=== PATIENT | female | born 1960 | race Caucasian/White ===

== ENCOUNTER 2019-09-27 12:55 | Emergency (ER) | payer OTHER ==
[~2019-09-27] VITALS: Ht 165.1 cm; Wt 68.0 kg
[2019-09-27 13:00] VITALS: BP 107/73
--- NOTE | 2019-09-27 13:00 | NUR ---
Patient BIBA BLS, transferred to bed 6. RN evaluating patient at bedside.
--- NOTE | 2019-09-27 14:14 | NUR ---
Dr. Donaldson is evaluating the patient at bedside.
[2019-09-27 14:50] LABS: BASOPHILS % (AUTO) 0.3 % (0.0-2.0); EOSINOPHILS % (AUTO) 0.4 % (0.0-4.0); HEMATOCRIT 43.4 % (36-48); HEMOGLOBIN 14.6 g/dL (12.0-16.0); LYMPHOCYTES # (AUTO) 1.2 K/uL (2.5-16.5); LYMPHOCYTES % (AUTO) 15.3 % (20.5-51.1); MEAN CORPUSCULAR HEMOGLOBIN 31 pg (27-31); MEAN CORPUSCULAR HGB CONC 34 g/dL (33-37); MONOCYTES # (AUTO) 0.8 K/uL (0.8-1.0); MONOCYTES % (AUTO) 10.5 % (1.7-9.3); NEUTROPHILS # (AUTO) 5.6 K/uL (1.8-7.7); NEUTROPHILS % (AUTO) 73.5 % (42.2-75.2); PLATELET COUNT (AUTO) 107 K/uL (140-450); RED BLOOD CELL COUNT(AUTO) 4.67 MIL/uL (4.20-5.40); RED CELL DISTRIBUTION WIDTH 14.5 % (11.6-13.7); WHITE BLOOD COUNT (AUTO) 7.6 K/uL (4.8-10.8)
[2019-09-27 15:03] LABS: ALBUMIN 3.6 g/dL (3.4-5.0); ANION GAP 21.5 (8-16); CARBON DIOXIDE 23.7 mmol/L (21-32); CREATININE 0.7 mg/dL (0.6-1.3); POTASSIUM 3.2 mmol/L (3.5-5.1); TOTAL BILIRUBIN 0.8 mg/dL (0.0-1.0)
[2019-09-27] MEDS: NACL 0.9% 1,000 ML IV SCH (15:18)
[2019-09-27] MEDS: ONDANSETRON 4 MG/2 ML VIAL IVP ONE (15:18)
[2019-09-27] MEDS: ALUMINUM HYD/MAG/SIMETHICONE 30 ML UDC PO ONE (15:18)
--- NOTE | 2019-09-27 15:23 | NUR ---
59 Y/O FEMALE PRESENTS WITH EPIGASTRIC PAIN + EMOTIONAL DISTRESS. PT STATES EPIGASTRIC PAIN BEGAN THIS MORNING S/P DRINKING BINGE THROUGHOUT THE NIGHT. PT STATES SHE HAS HISTORY OF ALCOHOLISM AND METH USE. PT STATES SHES FEELS VERY ANXIOUS AND DEPRESSED. DENIES SI. RESP EVEN AND UNLABORED. LUNG SOUNDS CLEAR IN BILAT LOBES. ABD SOFT/NON TENDER. BOWEL SOUNDS NORMOACTIVE IN ALL QUADRANTS. PMH: STROKE, ALCHOLISM NKA
[2019-09-27] MEDS: LORazepam 2 MG/ML VIAL IVP ONE (15:46)
[2019-09-27 15:56] LABS: APPEARANCE,URINE CLEAR (CLEAR); BILIRUBIN,URINE NEGATIVE (NEGATIVE); BLOOD, URINE 1+ (NEGATIVE); COLOR,URINE YELLOW (YELLOW); LEUKOCYTE ESTERASE ,URINE NEGATIVE (NEGATIVE); NITRITE, URINE NEGATIVE (NEGATIVE); UGLUCOSE NEGATIVE (NEGATIVE)
[2019-09-27 16:13] LABS: WBC,URINE 0-5 /HPF (0-5)
--- NOTE | 2019-09-27 17:50 | NUR ---
PER DR. ANNA, PT DISCLOSED SHE WAS FEELING SUICIDAL LAST NIGHT. DR. ANNA IS GOING TO ORDER A TELEPSYCH CONSULTATION
--- NOTE | 2019-09-27 17:55 | NUR ---
Telepsychiatry consultation ordered as requested by Dr. Donaldson.
--- NOTE | 2019-09-27 18:17 | NUR ---
Dr. Frances is evaluating the patient via telepsychiatry.
--- NOTE | 2019-09-27 19:11 | NUR ---
Pt report RECEIVED FROM DINESH VINCENT. ASSUMED care OF PT AT this time.
[2019-09-27 19:56] LABS: BARBITURATE, URINE POSITIVE ng/ml (NEG <=200); BENZODIAZEPINE, URINE POSITIVE ng/mL (NEG <=200); CANNABINOID, URINE NEGATIVE ng/mL (NEG <=50); COCAINE, URINE NEGATIVE ng/mL (NEG <=300); OPIATE, URINE NEGATIVE ng/mL (NEG <=2000); PHENCYCLIDINE SCREEN,URINE NEGATIVE ng/mL (NEG <=25)
--- NOTE | 2019-09-27 20:00 | NUR ---
PT PLACED ON 5150 HOLD. PT PERSONAL BELONGINGS REMOVED FROM PT AND PLACED IN BELONGINGS BAG AND PHONED SECURITY TO STATE DIRECTOR BELONGINGS. PT PLACED IN GOWN. ROOM CLEARED OF POTENTIAL HAZARDS. SUICIDE ASSESSMENT FORM COMPLETED. 15 MIN OBSERVATION CHECKLIST GIVEN TO AMANDA YATES, WHO IS SITTING AT BEDSIDE .
[2019-09-27] MEDS: POTASSIUM CHLORIDE 10 MEQ TABER PO ONE (20:14)
--- NOTE | 2019-09-27 20:32 | NUR ---
PT RESTING IN BED WITH [address], BED LOW AND LOCKED, 2 SIDERAILS UP, EMT MILAN AT [facility] THE SITTER.
--- NOTE | 2019-09-27 21:00 | NUR ---
[facility], AND PROVIDED INFORMATION TO HIM TO AID IN FINDING PLACEMENT FOR PT.
--- NOTE | 2019-09-27 23:30 | NUR ---
SPOKE WITH ELISEO FROM [facility] TO GIVE REPORT AND SHE STATED SHE WILL CALL ONE OF HER [place] DOCTORS AND WILL CALL OUR FACILITY BACK.
[2019-09-28] MEDS ORDERED: HYDR25CA1 PO (00:03)
[2019-09-28] MEDS ORDERED: GABA100C PO (00:03)
[2019-09-28] MEDS ORDERED: FLUO10CA21 PO (00:03)
--- NOTE | 2019-09-28 02:09 | NUR ---
PT SEEN WITH EYES CLOSED. VISIBLE CHEST RISE AND FALL NOTED. SAFETY MEASURES IN PLACE. 1:1 SITTER AT BEDSIDE. WILL CONTINUE TO MONITOR.
--- NOTE | 2019-09-28 03:15 | NUR ---
pt ambulated to restroom with steady gait.
--- NOTE | 2019-09-28 03:20 | NUR ---
PT EATING SANDWICH IN ROOM
--- NOTE | 2019-09-28 04:35 | NUR ---
PT ASLEEP IN BED IN POSITION OF COMFORT, SAFETY MEASURES IN PLACE. 1:1 SITTER AT BEDSIDE. VSS. WILL CONTINUE TO MONITOR.
--- NOTE | 2019-09-28 05:42 | NUR ---
PT ASLEEP IN BED IN POSITION OF COMFORT, SAFETY MEASURES IN PLACE. 1:1 SITTER AT BEDSIDE. VSS.BED LOW AND LOCKED, 2 SIDERAILS UP. WILL CONTINUE TO MONITOR.
--- NOTE | 2019-09-28 06:04 | NUR ---
BETHANY (ASSESSMENT REFERRAL LEAD COORDINATOR) [facility] PHONED [facility] AND GOT REPORT FROM DINESH DENNISON . [facility] THE PT FOR A TRANSFER AND THAT HE IS GOING TO FAX OVER A CV-19 ASSESSMENT FORM TO BE FILLED OUT PRIOR TO TRANSFER, WHICH WAS DONE AND FAXED BACK TO [facility]. BETHANY STATED ONCE HE RECEIVES THE RETURNED FAX, [facility]
--- NOTE | 2019-09-28 06:17 | NUR ---
AQUILES FROM [facility] PHONED AND INQUIRED TO THE STATUS OF THE CV19 ASSESSMENT FORM [facility] REQUIR[facility] FOR ADMISSION AND INFORMED AQUILES DENNISON RN FILLED OUT THE FORM AND FAXED IT BACK TO [facility]. AQUILES SAID ONCE SHE RECEIVES IT ON HER END SHE WILL PHONE [facility] ER BACK TO ARRANGE TRANSPORTATION. DR. LAZO MADE AWARE.
--- NOTE | 2019-09-28 06:25 | NUR ---
CONFIRMATION OF FAX SENT TO [facility] RECEIVED
--- NOTE | 2019-09-28 06:42 | NUR ---
PHONED [facility] AT [phone] ext [phone] AND SPOKE WITH DINESH VILLASEÑOR AND GAVE REPORT. DR. DE LOS SANTOS IS ACCEPTING .
--- NOTE | 2019-09-28 07:09 | NUR ---
Pt report given to DINESH MARTIN. Transfer of care at this time.
--- NOTE | 2019-09-28 07:12 | NUR ---
PT UPRIGHT IN BED. 1-1 SITTER AT BEDSIDE. PT EATING BREAKFEAST. NO COMPLAINTS AT THIS TIME
[2019-09-28 07:44] VITALS: BP 114/76
--- NOTE | 2019-09-28 07:44 | NUR ---
TRANSPORT TEAM ARRIVED TO TAKE PT TO [facility]. REPORT GIVEN TO EMS. NO FURTHER QUESTIONS. VS STABLE.
== END 2019-09-28 07:44 ==
LOC: MED 12:55
DX: F10.239 Alcohol dependence with withdrawal, unspecified (principal); F15.90 Other stimulant use, unspecified, uncomplicated; R45.851 Suicidal ideations; R10.13 Epigastric pain; R07.9 Chest pain, unspecified
CPT/HCPCS: 36415; 80053; 80305; 81001; 82150; 83690; 84484; 85025; 87086; 93005; 96374; 96375; 99285; G0482; J2060; J2405; J7030